=== PATIENT | male | born 1990 | race Caucasian/White ===

== ENCOUNTER 2016-07-15 22:07 | Emergency (ER) | payer OTHER ==
[~2016-07-15] VITALS: Ht 172.7 cm; Wt 93.0 kg
[2016-07-16] MEDS ORDERED: ACETAMINOPHEN TAB 650MG DOSE (2X325MG) PO ONE (03:00)
[2016-07-16 03:36] VITALS: BP 141/95
--- NOTE | 2016-07-16 08:21 | REP ---
Clinical: Trauma. Technique: AP, lateral, bilateral oblique views of the right fourth digit. Findings: No acute fracture or dislocation. Skeletal structures, joint spaces, and surrounding soft tissues are normal. Impression: Normal fourth digit radiographs. No acute fracture or dislocation. Signed by Corey Suarez MD 07/16/2016 08:12 A
== END 2016-07-16 03:39 | disposition home or self-care (01) ==
LOC: M ED 23:40
DX: S60.221A Contusion of right hand, initial encounter (principal); W23.0XXA Caught, crushed, jammed, or pinched between moving objects, initial encounter; Y92.099 Unspecified place in other non-institutional residence as the place of occurrence of the external cause; Y93.9 Activity, unspecified; Y99.9 Unspecified external cause status